=== PATIENT | female | born 1995 | race Caucasian/White ===

== ENCOUNTER 2017-07-04 17:22 | Emergency (ER) | payer BC ==
[2017-07-04 20:02] VITALS: BP 144/59
--- NOTE | 2017-07-04 20:22 | UC ---
Hand/Wrist HPI - HPI Summary HPI Summary: Right hand got caught between a door and wall at 2:30PM yesterday. Alcohol was involved. - History Of Current Complaint Chief Complaint: UCUpperExtremity Stated Complaint: RT HAND INJ Time Seen by Provider: 07/04/17 20:13 Hx Obtained From: Patient Hx Last Menstrual Period: 06/28/17, ON CONTROL ?: No Onset/Duration: Sudden Onset - yesterday at 2:30 pm, Worse Since - today since sober. Severity Initially: Mild Severity Currently: Moderate Pain Intensity: 5 Character Of Pain: Burning Aggravating Factor(s): Movement, Lifting Alleviating Factor(s): Rest, Ice Associated Signs And Symptoms: Positive: Bruising Related History: Dominant Hand Right - Risk Factors Compartment Syndrome Risk Factors: Pain - Allergies/Home Medications Allergies/Adverse Reactions: Allergies Allergy/AdvReac Type Severity Reaction Status Date / Time No Known Allergies Allergy Verified 07/04/17 20:02 Home Medications: Home Medications Oral Control 1 tab PO DAILY 07/04/17 [History Confirmed 07/04/17] PMH/Surg Hx/FS Hx/Imm Hx Previously Healthy: Yes - Surgical History Surgical History: Yes Surgery Procedure, Year, and Place: [place] [facility], 2014; Tonsillectomy, 2013 - Family History Known Family History: Positive: Cardiac Disease, Hypertension, Diabetes - Social History Occupation: Student Lives: Dormitory/Roommates Alcohol Use: Weekly Substance Use Type: None Smoking Status (MU): Never Smoked Tobacco Have You Smoked in the Last Year: No - Immunization History Most Recent Influenza Vaccination: 09/24/15 Review of Systems Skin: Bruising Neurological: Numbness Is Patient Immunocompromised?: No All Other Systems Reviewed And Are Negative: Yes Physical Exam Triage Information Reviewed: Yes Appearance: Well-Appearing, No Pain Distress, Well-Nourished Vital Signs: Initial Vital Signs Temp 99.4 F 07/04/17 19:58 Pulse 83 07/04/17 19:58 Resp 14 07/04/17 19:58 BP 144/59 07/04/17 19:58 Vital Signs Reviewed: Yes Eyes: Positive: Conjunctiva Clear Neck exam: Normal Respiratory Exam: Normal Cardiovascular Exam: Normal Musculoskeletal: Positive: Strength Limited @ - with making a fist., ROM Limited @ - Right hand decreased MCP 2nd., Other: - Tender right 2nd MCP. Neurological: Positive: Other: - decreased sensation to pinprick from dorsal and reich hand down index finger. Psychological Exam: Normal Skin: Positive: Other - bruising over right 2nd MCP Hand/Wrist Course/Dx - Differential Dx/Diagnosis Differential Diagnosis/HQI/PQRI: Contusion, Sprain, Strain Provider Diagnoses: Contusion right hand. Nerve contusion. Discharge - Discharge Plan Condition: Stable Disposition: HOME Patient Education Materials: Contusion in Adults (ED) Referrals: Non Staff,Doctor [Primary Care Provider] - Rudy Crouch MD [Medical Doctor] - If Needed (if you have persistent hand numbness.) Additional Instructions: You also have a nerve contusion. This may take a month or two to resolve.
--- NOTE | 2017-07-04 20:53 | RAD ---
INDICATION: Right hand injury COMPARISON: None TECHNIQUE: AP, lateral, and oblique views were obtained. FINDINGS: The bony structures, joint spaces, and soft tissues are normal for age. IMPRESSION: NEGATIVE EXAMINATION.
== END 2017-07-04 21:11 | disposition home or self-care (01) ==
LOC: UCCORT 17:22
DX: S60.221A Contusion of right hand, initial encounter (principal); S64.91XA Injury of unspecified nerve at wrist and hand level of right arm, initial encounter; W23.0XXA Caught, crushed, jammed, or pinched between moving objects, initial encounter; Y93.9 Activity, unspecified; Y92.9 Unspecified place or not applicable
CPT/HCPCS: 99211; G0463

== ENCOUNTER 2017-07-20 11:45 | Emergency (ER) | payer BC ==
[2017-07-20 12:38] VITALS: BP 107/63
--- NOTE | 2017-07-20 12:55 | UC ---
Throat Pain/Nasal Damian HPI - HPI Summary HPI Summary: 21 female presents to with complaints of sore throat, congestion, cough, fatigue, fever and neck/back pain that has been ongoing for 5 days. States cough is dry and intermittent. Patient states she feels her symptoms are worsening and have not improved. Was seen by provider at home, in Wednesday given z-hima and tessalon pearls without relief. States she was tested for flu and strep which were both negative. Did have flu shot. States fevers have been 101F-102.5F, which was last night. States she has had mono in the past and that she has not felt this bad since that last mono infection. Denies vomiting and abdominal pain. Admits to headache at times. States she is able to move her neck and back but it causes her pain. Denies stiffness. No other medical problems. 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 Last took tylenol last night, which does give her relief. No other complaints. Denies chest pain and trouble breathing. States cough is dry and intermittent. - History of Current Complaint Chief Complaint: UCRespiratory Stated Complaint: FEVER, BACK/NECK PAIN Time Seen by Provider: 07/20/17 12:21 Hx Obtained From: Patient Hx Last Menstrual Period: 06/28/17 Onset/Duration: Sudden Onset, Lasting Days - 5, Still Present, Worse Since Severity: Moderate Pain Intensity: 5 Pain Scale Used: 0-10 Numeric Cough: None Associated Signs & Symptoms: Positive: Dysphagia, Nasal Discharge, Fever - Allergies/Home Medications Allergies/Adverse Reactions: Allergies Allergy/AdvReac Type Severity Reaction Status Date / Time No Known Allergies Allergy Verified 07/20/17 12:26 Home Medications: Home Medications Azithromyxin HIMA (NF) [Z-Hima (Zithromax) 250 mg tabs #6] 2 tab PO .TODAY, THEN 1 DAILY 07/20/17 [History Confirmed 07/20/17] Benzonatate CAP* [Tessalon 100 MG CAP*] 100 mg PO TID PRN 07/20/17 [History Confirmed 07/20/17] PMH/Surg Hx/FS Hx/Imm Hx - Additional Past Medical History Additional PMH: Denies DM and HTN Has had mono infection in the past - Surgical History Surgical History: Yes Surgery Procedure, Year, and Place: [place] [facility], 2015; Tonsillectomy, 2014 - Family History Known Family History: Positive: Cardiac Disease, Hypertension, Diabetes - Social History Alcohol Use: Occasionally Substance Use Type: None Smoking Status (MU): Never Smoked Tobacco Have You Smoked in the Last Year: No - Immunization History Most Recent Influenza Vaccination: 09/24/15 Review of Systems Constitutional: Fever, Chills, Fatigue Skin: Negative Eyes: Negative ENT: Sore Throat, Nasal Discharge, Sinus Congestion Respiratory: Cough Cardiovascular: Negative Gastrointestinal: Negative Musculoskeletal: Arthralgia - neck pain and back pain, Myalgia Neurological: Headache All Other Systems Reviewed And Are Negative: Yes Physical Exam Triage Information Reviewed: Yes Appearance: Well-Appearing, No Pain Distress, Well-Nourished Vital Signs: Initial Vital Signs Temp 99.1 F 07/20/17 12:28 Pulse 120 07/20/17 12:28 Resp 20 07/20/17 12:28 BP 107/63 07/20/17 12:28 Pulse Ox 97 07/20/17 12:28 tachycardia noted Vital Signs Reviewed: Yes Eye Exam: Normal Eyes: Positive: Conjunctiva Clear, Other: - EOMI, [place] ENT: Positive: Hearing grossly normal, Pharyngeal erythema - with post nasal drip, exudate noted, Nasal congestion, TMs normal, Uvula midline, Other - tonsillectomy. Negative: Trismus, Muffled voice Dental: Positive: Cervical Lymphadenopathy. Negative: Percussion Tenderness @ Neck: Positive: Supple, Nontender, Other: - pain on palpation of c-spine and thoracic spine. no stiffness appreciated, pain with movement. able to touch chin to chest, but does elicit pain in c1-c3 region. negative brudinski and kernigs. Respiratory: Positive: Chest non-tender, Lungs clear, Normal breath sounds, No respiratory distress. Negative: Respiratory distress, Decreased breath sounds, Wheezing Cardiovascular: Positive: RRR, No Murmur, Pulses Normal, Brisk Capillary Refill , Tachycardia Abdomen Description: Positive: Nontender, No Organomegaly, Soft, Splenomegaly - able to palpate spleen, possibly slightly enlarged. Negative: Bruit, CVA Tenderness (R), CVA Tenderness (L), Distended, Guarding Bowel Sounds: Positive: Present Musculoskeletal: Positive: Strength Intact, ROM Intact, No Edema. Negative: Strength Limited @ Neurological Exam: Normal - neuro exam normal, memory and concentration intact, A&Ox3 Neurological: Positive: Alert, Muscle Tone Normal Skin Exam: Normal Throat Pain/Nasal Course/Dx - Course Course Of Treatment: afebrile currently while in . patient already seen by PCP on 07/18 and treated with zpack, tessalon pearls, and negative flu/strep swabs. Due to complaint of symptoms, length of symptoms, worsening symptoms, tachycardia and PE findings suggested patient go straight to ER for further work up and evaluation that we are uncapable of obtaining here at . suggested monospot and blood work with results that are obtained today rather than waiting. r/o meningitis due to age group, symptoms and fever. patient agrees and will go to ER via private car. encouraged fluids, rest and tylenol. Spoke with Kenton MARSHALL and [facility] at 1:00pm who accepted patient and took report. - Differential Dx/Diagnosis Differential Diagnosis/HQI/PQRI: Influenza, Mononucleosis, Pharyngitis, URI, Other - viral syndrome, meningitis Provider Diagnoses: pharyngitis, neck pain, tachycardia - Physician Notification/Consults Discussed Patient Care With: Kenton MARSHALL at [facility] Instructed by Provider To: Other - accepted to ED Discharge - Discharge Plan Condition: Stable Disposition: OTHER Discharge Disposition Comment: recommended going to [facility], patient agreed Referrals: Non Staff,Doctor [Primary Care Provider] - Additional Instructions: Please go to ER for further work up and evaluation.
== END 2017-07-20 13:02 ==
LOC: UCCORT 11:45
DX: J02.9 Acute pharyngitis, unspecified (principal); M54.2 Cervicalgia; R00.0 Tachycardia, unspecified
CPT/HCPCS: 99212; G0463